=== PATIENT | male | born 1985 | race African-American/Black ===

== ENCOUNTER 2018-12-10 14:16 | Emergency (ER) | payer SELFPAY ==
[2018-12-10 14:26] VITALS: BP 141/60; PULSE 82; TEMP 98.1; BMI 30.4
--- NOTE | 2018-12-10 14:28 | PDOC ---
Rapid Medical Evaluation Chief Complaint: Cold Symptoms Time Seen by Provider: 12/10/18 14:22 Medical Evaluation: Allergies Allergy/AdvReac Type Severity Reaction Status Date / Time No Known Allergies Allergy Verified 01/12/18 14:46 12/10/18 14:22 I have performed a brief in-person evaluation of this patient. The patient presents with a chief complaint of: allergies acting up with runny nose, sneezing, nasal congestion. Patient also report pain to toenail of left 4th toe after hitting toenail on bed post 5 days ago Pertinent physical exam findings: mild erythema around nail bed of left 4th toe. lungs CTAB. heart RRR I have ordered the following: nothing The patient will proceed to the ED for further evaluation. Discharge Disposition - Diagnosis Toe pain, left Seasonal allergies Qualifiers: Allergic rhinitis trigger: pollen Qualified Code(s): J30.1 - Allergic rhinitis due to pollen Rhinitis Qualifiers: Rhinitis type: allergic Allergic rhinitis trigger: pollen Allergic rhinitis seasonality: seasonal Qualified Code(s): J30.1 - Allergic rhinitis due to pollen - Discharge Dispostion Condition at time of disposition: Stable - Referrals - Patient Instructions - Post Discharge Activity
--- NOTE | 2018-12-10 14:54 | PDOC ---
History of Present Illness - General Chief Complaint: Cold Symptoms Stated Complaint: LEFT TWO NAIL CAME OFF Time Seen by Provider: 12/10/18 14:22 History Source: Patient Exam Limitations: No Limitations - History of Present Illness Initial Comments: 12/10/18 14:56 Patient here with complaints of seasonal ALLERGIES that he is taking over-the- counter medications for with good resolved. But also more concerned about his athlete's foot. States has suffered for many months, has been using sprays, creams, and powders but was concerned as his toenails are progressively worsening. Denies fever, swelling, and not excessively painful. Timing/Duration: reports: getting worse Severity: Yes: mild, moderate Associated Symptoms: reports: denies symptoms Past History - Travel Traveled outside of the country in the last 30 days: No Close contact w/someone who was outside of country & ill: No - Past Medical History Allergies/Adverse Reactions: Allergies Allergy/AdvReac Type Severity Reaction Status Date / Time No Known Allergies Allergy Verified 12/10/18 14:26 Home Medications: Ambulatory Orders Cyclobenzaprine HCl [Flexeril 10 mg] 10 mg PO BID 10 Days #20 tablet 01/12/18 Cyclobenzaprine HCl [Flexeril 10 mg] 10 mg PO BID 7 Days #20 tablet 01/12/18 Naproxen [EC-Naprosyn] 500 mg PO BID 15 Days #30 tab 01/12/18 Naproxen [EC-Naprosyn] 500 mg PO BID 15 Days #30 tab 01/12/18 COPD: No - Surgical History Abdominal Surgery: Yes Appendectomy: Yes - Immunization History Td Vaccination: Yes Immunization Up to Date: Yes - Suicide/Smoking/Psychosocial Hx Smoking Status: No Smoking History: Never smoked Years of Tobacco Use: 0 Have you smoked in the past 12 months: No Number of Cigarettes Smoked Daily: 0 Cigars Per Day: 0 Hx Alcohol Use: Yes Drug/Substance Use Hx: No Substance Use Type: None Review of Systems - Review of Systems Able to Perform ROS?: Yes Is the patient limited Ni[place]an proficient: Yes Constitutional: Yes: See HPI. No: Symptoms Reported HEENTM: No: Symptoms Reported Integumentary: Yes: Symptoms Reported, See HPI, Erythema, Rash (left foot) Neurological: Yes: Symptoms reported All Other Systems: Reviewed and Negative *Physical Exam - Vital Signs Last Vital Signs Temp Pulse Resp BP Pulse Ox 98.1 F 82 16 141/60 98 12/10/18 14:23 12/10/18 14:23 12/10/18 14:23 12/10/18 14:23 12/10/18 14:23 - Physical Exam General Appearance: Yes: Nourished, Appropriately Dressed HEENT: positive: KALA, Normal ENT Inspection, TMs Normal, Pharynx Normal Neck: positive: Supple. negative: Tender Respiratory/Chest: positive: Lungs Clear Musculoskeletal: positive: Normal Inspection Extremity: positive: Normal Capillary Refill, Normal Range of Motion, Tender, Other (White moist exudative rash between interdigital folds of left foot 34 and 5 with onychomycosis. For toenail partially avulsed but eponychial intact.) . 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, Fully Oriented, Alert, Normal Mood/ Affect, Normal Response, Motor Strength 5/5 *DC/Admit/Observation/Transfer Diagnosis at time of Disposition: Toe pain, left Seasonal allergies Qualifiers: Allergic rhinitis trigger: pollen Qualified Code(s): J30.1 - Allergic rhinitis due to pollen - Discharge Dispostion Disposition: HOME Condition at time of disposition: Stable Decision to Admit order: No - Referrals Referrals: Urban Burroughs MD [Staff Physician] - - Patient Instructions Printed Discharge Instructions: DI for Athlete's Foot Additional Instructions: Rest, keep cool and dry- avoid strenuous activity or hot /humid environments Less hot showers, no abrasive soaps but ensure to keep areas clean and as dry as possible May use [id number] creams like clotrimazole for antifungal purpose, apply thinly twice a day until resolved May try bleach baths, 10% solution equal 2 gallons with a quarter of a cup of bleach, not too much to avoid burning skin with 2 stronger bleach and soak for 10-15 minutes twice a day May use Benadryl at night for antihistamine, Zyrtec/ Svitlana or Claritin for daytime antihistamine use to help with itching Be sure to clean bathtub after each use with bleach wipes to avoid contamination of other family members Followup with PMD in one week if no resolution Make appointment with wet inspector optical glass for evaluation when possible - Post Discharge Activity Forms/Work/School Notes: Back to Work
== END 2018-12-10 14:56 | disposition home or self-care (01) ==
LOC: JERFT 14:16
DX: J30.1 Allergic rhinitis due to pollen (principal); S91.205A Unspecified open wound of left lesser toe(s) with damage to nail, initial encounter; W22.03XA Walked into furniture, initial encounter; Y93.H3 Activity, building and construction; Y92.032 Bedroom in apartment as the place of occurrence of the external cause; Y99.8 Other external cause status
CPT/HCPCS: 99281-25